=== PATIENT | male | born 1985 | race Caucasian/White ===

== ENCOUNTER 2017-09-28 23:13 | Emergency (ER) | payer BC, OTHER ==
[~2017-09-28] VITALS: Ht 182.9 cm; Wt 81.6 kg
[2017-09-28] MEDS ORDERED: NKM (23:21)
[2017-09-28 23:53] LABS: BASOPHILS % (AUTO) 1.4 % (0.0-2.0); EOSINOPHILS % (AUTO) 2.1 % (0.0-3.0); HEMATOCRIT 45.9 % (42.0-52.0); HEMOGLOBIN 15.8 G/DL (14.2-18.0); LYMPHOCYTES % (AUTO) 32.4 % (20.0-45.0); MEAN CORPUSCULAR VOLUME 90 FL (80-99); MONOCYTES % (AUTO) 6.7 % (1.0-10.0); NEUTROPHILS % (AUTO) 57.3 % (45.0-75.0); PLATELET COUNT 266 K/UL (150-450); RED CELL DISTRIBUTION WIDTH 11.9 % (11.6-14.8); WHITE BLOOD COUNT 8.8 K/UL (4.8-10.8)
[2017-09-28 23:59] VITALS: BP 125/65
[2017-09-29 00:02] LABS: APPEARANCE,URINE CLEAR; BILIRUBIN, URINE NEGATIVE (NEGATIVE); COLOR,URINE PALE YELLOW; GLUCOSE, URINE (UA) NEGATIVE (NEGATIVE); KETONES,URINE 1+ (NEGATIVE); LEUKOCYTE ESTERASE ,URINE NEGATIVE (NEGATIVE); NITRITE,URINE NEGATIVE (NEGATIVE); PH,URINE 6 (4.5-8.0); PROTEIN,URINE NEGATIVE (NEGATIVE); UROBILINOGEN,URINE NORMAL MG/DL (0.0-1.0)
[2017-09-29 00:04] LABS: ANION GAP 7 mmol/L (5-15); BLOOD UREA NITROGEN 23 mg/dL (7-18); CALCIUM 9.4 MG/DL (8.5-10.1); CARBON DIOXIDE 31 MMOL/L (21-32); CHLORIDE 101 MMOL/L (98-107); CREATININE 1.5 MG/DL (0.55-1.30); POTASSIUM 3.3 MMOL/L (3.5-5.1); SODIUM 139 MMOL/L (136-145)
[2017-09-29 00:05] VITALS: BP_SYST 112; BP_SYST 114; BP_DIAS 66; BP_DIAS 95
[2017-09-29 00:06] VITALS: BP_SYST 107; BP_SYST 112; BP_DIAS 66; BP_DIAS 78
[2017-09-29 00:10] LABS: ALANINE AMINOTRANSFERASE 28 U/L (12-78); ALBUMIN/GLOBULIN RATIO 1.1 (1.0-2.7); ALKALINE PHOSPHATASE 65 U/L (46-116); ASPARTATE AMINO TRANSFERASE 16 U/L (15-37); BILIRUBIN,TOTAL 0.4 MG/DL (0.2-1.0); CREATINE KINASE 80 U/L (26-308)
[2017-09-29 02:06] VITALS: BP 111/66
[2017-09-29 02:20] VITALS: BP 111/66
--- NOTE | 2017-09-29 02:20 | Emergency Room Report ---
History of Present Illness General Chief Complaint: Syncope Source: Patient Present Illness HPI Just after eating the patient was standing for about 5 minutes (smoking) and started feeling nausea and then weak. He started to pass out and then stood up and then passed out apparently hitting his head on a car. There is no head pain at this time. Never passed out before. Drank several glasses of water before coming in. Was out for seconds. No seizure activity. Friends convinced to come for evaluation. (third date) Sober for many years. No fevers, vomiting, chest or abdominal pain, cough, joint pain, change in vision (except for event). No history of blood clots, melena, blood thinners, residual numbness or weakness. Allergies: Coded Allergies: No Known Allergies (Unverified , 09/28/17) Patient History Past Medical History: see triage record Pertinent Family History: other - breast cancer Social History: Reports: smoking, alcohol use - sober years, drug use - sober years Social History Narrative guest house manager works on [employer] Reviewed Nursing Documentation: PMH: Agreed, PSxH: Agreed Nursing Documentation-PMH Past Medical History: No Stated History Review of Systems All Other Systems: negative except mentioned in HPI Physical Exam Vital Signs Date Time Temp Pulse Resp B/P (MAP) Pulse Ox O2 Delivery O2 Flow Rate FiO2 09/28/17 23:17 97.3 101 16 110/79 96 Room Air 97.3 Sp02 EP Interpretation: reviewed, normal General Appearance: well appearing, no apparent distress, GCS 15 Head: normocephalic, other - no tenderness or hematomata Eyes: bilateral eye normal inspection, bilateral eye PERRL, bilateral eye EOMI ENT: moist mucus membranes Neck: full range of motion, supple, no bony tend Respiratory: chest non-tender, lungs clear, normal breath sounds Cardiovascular #1: regular rate, rhythm Cardiovascular #2: 2+ radial (R) Gastrointestinal: normal inspection, normal bowel sounds, non tender, no mass, non-distended Musculoskeletal: back normal, gait/station normal, normal range of motion Neurologic: alert, oriented x3, 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 Ddx: vasovagal, AMI, arrhythmia, dehydration, bleeding, PE amongst others. No red flag signs or symptoms. VS and hx against PE. Needs evaluation with EKG cardiac monitoring, labs, orthostatics. Treatment with IV hydration. As preceding sy, no need to contact DMV. EKG without injury or ectopy. CXR deep inspiration. Labs with renal insufficiency, slightly low potassium. Not orthostatic. Patient improved with treatment. Discussed labs and need for follow up. Patient stable for outpatient observation and follow up. Laboratory Tests Test 09/28/17 23:28 09/28/17 23:55 White Blood Count 8.8 K/UL (4.8-10.8) Red Blood Count 5.10 M/UL (4.70-6.10) Hemoglobin 15.8 G/DL (14.2-18.0) Hematocrit 45.9 % (42.0-52.0) Mean Corpuscular Volume 90 FL (80-99) Mean Corpuscular Hemoglobin 31.0 PG (27.0-31.0) Mean Corpuscular Hemoglobin Concent 34.4 G/DL (32.0-36.0) Red Cell Distribution Width 11.9 % (11.6-14.8) Platelet Count 266 K/UL (150-450) Mean Platelet Volume 6.8 FL (6.5-10.1) Neutrophils (%) (Auto) 57.3 % (45.0-75.0) Lymphocytes (%) (Auto) 32.4 % (20.0-45.0) Monocytes (%) (Auto) 6.7 % (1.0-10.0) Eosinophils (%) (Auto) 2.1 % (0.0-3.0) Basophils (%) (Auto) 1.4 % (0.0-2.0) Prothrombin Time 10.3 SEC (9.30-11.50) Prothrombin Time INR 1.0 (0.9-1.1) PTT 24 SEC (23-33) Sodium Level 139 MMOL/L (136-145) Potassium Level 3.3 MMOL/L (3.5-5.1) L Chloride Level 101 MMOL/L (98-107) Carbon Dioxide Level 31 MMOL/L (21-32) Anion Gap 7 mmol/L (5-15) Blood Urea Nitrogen 23 mg/dL (7-18) H Creatinine 1.5 MG/DL (0.55-1.30) H Estimate Glomerular Filtration Rate 53.9 mL/min (>60) Glucose Level 111 MG/DL (74-106) H Calcium Level 9.4 MG/DL (8.5-10.1) Total Bilirubin 0.4 MG/DL (0.2-1.0) Aspartate Amino Transferase (AST) 16 U/L (15-37) Alanine Aminotransferase (ALT) 28 U/L (12-78) Alkaline Phosphatase 65 U/L (46-116) Total Creatine Kinase 80 U/L (26-308) Troponin I 0.000 ng/mL (0.000-0.056) Total Protein 7.5 G/DL (6.4-8.2) Albumin 4.0 G/DL (3.4-5.0) Globulin 3.5 g/dL Albumin/Globulin Ratio 1.1 (1.0-2.7) Urine Color Pale yellow Urine Appearance Clear Urine pH 6 (4.5-8.0) Urine Specific [place] 1.015 (1.005-1.035) Urine Protein Negative (NEGATIVE) Urine Glucose (UA) Negative (NEGATIVE) Urine Ketones 1+ (NEGATIVE) H Urine Occult Blood Negative (NEGATIVE) Urine Nitrite Negative (NEGATIVE) Urine Bilirubin Negative (NEGATIVE) Urine Urobilinogen Normal MG/DL (0.0-1.0) Urine Leukocyte Esterase Negative (NEGATIVE) Urine Opiates Screen Negative (NEGATIVE) Urine Barbiturates Screen Negative (NEGATIVE) Phencyclidine (PCP) Screen Negative (NEGATIVE) Urine Amphetamines Screen Negative (NEGATIVE) Urine Benzodiazepines Screen Negative (NEGATIVE) Urine Cocaine Screen Negative (NEGATIVE) Urine Marijuana (THC) Screen Negative (NEGATIVE) EKG Diagnostic Results Rate: normal Rhythm: NSR ST Segments: no acute changes Rhythm Strip Diag. Results EP Interpretation: yes Rhythm: NSR, no PVC's, no ectopy Chest X-Ray Diagnostic Results Chest X-Ray Diagnostic Results : Chest X-Ray Ordered: Yes # of Views/Limited/Complete: 1 View Indication: Other EP Interpretation: Yes Interpretation: no consolidation, no effusion, no pneumothorax Impression: No acute disease Electronically Signed by: Andrew Bruno MD Last Vital Signs Date Time Temp Pulse Resp B/P (MAP) Pulse Ox O2 Delivery O2 Flow Rate FiO2 09/29/17 02:27 85 13 111/66 100 Room Air 09/28/17 23:59 97.3 97.3 Status: improved Disposition: HOME, SELF-CARE Condition: Improved Referrals: NOT CHOSEN IPA/,REFERRING (PCP) Andrew Bruno M.D. Sep 29, 2017 02:20
[2017-09-29 02:27] VITALS: BP 111/66
--- NOTE | 2017-09-29 09:56 | Diagnostic Imaging Report ---
Indication: Syncope Technique: XRAY Chest 1v Comparison: None Findings: Heart size and mediastinal contours are within normal limits. There is no focal consolidation, pneumothorax or pleural effusion. Osseous structures demonstrate no acute abnormality. Impression: No radiographic evidence of acute cardiopulmonary disease.
--- NOTE | 2017-09-29 15:04 | Cardiology Report ---
APPROVED REPORT EKG Measurement Heart [id number] Normal sinus rhythm with sinus arrhythmia Possible Left atrial enlargement Nonspecific ST abnormality Abnormal ECG
== END 2017-09-29 02:32 | disposition home or self-care (01) ==
LOC: EMR 23:40
DX: R55 Syncope and collapse (principal); N28.9 Disorder of kidney and ureter, unspecified; E87.6 Hypokalemia; E86.0 Dehydration
CPT/HCPCS: 36415; 71045; 80053; 80307; 81003; 82550; 84484; 85025; 85610; 85730; 93005; 96360; 96361; 99284; J8499